=== PATIENT | female | born 1990 | race Two or more races ===

== ENCOUNTER 2023-11-15 18:05 | Emergency (ER) | payer MEDICAID, OTHER ==
[~2023-11-15] VITALS: Ht 152.4 cm; Wt 7.0 kg
[2023-11-15 20:30] VITALS: BP 116/52; PULSE 89; RESP 16; TEMP 98.7; O2SAT 99
[2023-11-15] MEDS ORDERED: AUG875T PO (20:59)
[2023-11-15] MEDS: DexAMETHasone SOD PHOS 10MG/1ML VIAL INJ IM ONE (21:28)
== END 2023-11-15 21:49 | disposition home or self-care (01) ==
LOC: ER 18:05
DX: J03.00 Acute streptococcal tonsillitis, unspecified (principal)
CPT/HCPCS: 96372; 99283; J1100